=== PATIENT | female | born 1980 | race Caucasian/White ===

== ENCOUNTER 2018-07-23 14:44 | Emergency (ER) | payer MEDICAID, OTHER ==
[2018-07-23 14:59] VITALS: BP 126/82; PULSE 67; RESP 16; TEMP 97.4; O2SAT 100
== END 2018-07-23 15:54 | disposition home or self-care (01) | DRG 312 ==
LOC: ED 14:44
DX: R55 Syncope and collapse (principal); Z79.01 Long term (current) use of anticoagulants; R07.9 Chest pain, unspecified
CPT/HCPCS: 93005; 99282; 99283